=== PATIENT | female | born 1945 | race Caucasian/White ===

== ENCOUNTER 2019-04-16 11:24 | Observation (INO) | payer MEDICARE ==
[~2019-04-16] VITALS: Ht 157.5 cm; Wt 67.2 kg
[~2019-04-16 11:24] MED LIST: BYSTOLIC10 MG PO; CLONIDINE HCL0.1 MG PO; CRESTOR10 MG PO; LOSARTAN POTAS100 MG PO; METFORMIN HCL850 MG PO
[2019-04-16 11:55] LABS: BASOPHILS # (AUTO) 0.1 (0.0-0.1); BASOPHILS % 0.5 % (0.0-1.0); EOSINOPHILS # (AUTO) 0.1 (0.0-0.4); EOSINOPHILS % 1.1 % (0.0-6.0); HEMATOCRIT 30.5 % (34.2-44.1); HEMOGLOBIN 10.1 g/dL (12.0-16.0); LYMPHOCYTES # (AUTO) 1.3 (1.0-3.2); LYMPHOCYTES % 12.6 % (18.0-39.1); MEAN CORPUSCULAR HEMOGLOBIN 28.5 pg (28-32); MEAN CORPUSCULAR HGB CONC 33.1 g/dL (31-35); MEAN CORPUSCULAR VOLUME 85.9 fL (81-99); MONOCYTES # (AUTO) 0.8 (0.2-0.8); MONOCYTES % 7.4 % (4.4-11.3); NEUTROPHILS # (AUTO) 8.1 (2.1-6.9); NEUTROPHILS % 77.8 % (38.7-80.0); PLATELET COUNT 254 x10e3/uL (140-360); RED BLOOD COUNT 3.55 x10e6/uL (3.6-5.1); RED CELL DISTRIBUTION WIDTH 14.1 % (11.7-14.4)
[2019-04-16 12:05] LABS: INR 0.85; PROTHROMBIN TIME 12.1 seconds (11.9-14.5)
[2019-04-16 12:06] LABS: PARTIAL THROMBOPLASTIN TIME 33.1 seconds (23.8-35.5)
[2019-04-16 12:15] LABS: ALBUMIN 3.7 g/dL (3.5-5.0); ALBUMIN/GLOBULIN RATIO 1.1 (0.8-2.0); CALCIUM 8.9 mg/dL (8.4-10.2); CREATININE, SERUM 0.97 mg/dL (0.57-1.11)
[2019-04-16 12:22] LABS: CREATINE KINASE MB 0.8 ng/mL (0-5.0)
--- NOTE | 2019-04-16 12:30 | NUR ---
CAROTID AND ECHO COMPLETE
--- NOTE | 2019-04-16 12:41 | Diagnostic Imaging Report ---
EXAMINATION: CHEST SINGLE (PORTABLE) COMPARISON: None INDICATION: Dizziness, nausea, vomiting ^ERMD ORDER ^[id number] ^[id number] ^Y DISCUSSION: Frontal view of the chest obtained at 1200 hours. HEART AND MEDIASTINUM: The cardiomediastinal silhouette is unremarkable. LINES: None. LUNGS: The lungs are mildly hyperinflated suggestive of small airways disease. No pneumonia or pulmonary edema. PLEURA: No pleural effusion or pneumothorax. BONES AND SOFT TISSUES: No focal osseous lesion. The soft tissues are normal. IMPRESSION: Mild pulmonary hyperinflation. No acute cardiopulmonary process. Signed by: Dr. Humera Cui MD on 04/16/2019 12:37 PM
--- NOTE | 2019-04-16 12:46 | Diagnostic Imaging Report ---
CT BRAIN WO HISTORY: 73-year-old female with syncopal episode COMPARISON: None. TECHNIQUE: Noncontrast axial scans were obtained from skull base to the vertex. Coronal and sagittal reconstructions obtained from the axial data. One or more of the following dose reduction techniques were used: Automated exposure control, adjustment of the mA and/or kV according to patient size, and/or utilization of iterative reconstruction technique. DISCUSSION: Scalp/Skull: Unremarkable. Brain sulci: Mild generalized volume loss. Ventricles: Mild compensatory dilatation. No hydrocephalus. Extra-axial spaces: No masses or fluid collections. Parenchyma: Multiple hypodense foci in the supratentorial white matter are chronic microvascular ischemic changes. Lacunar infarcts within bilateral subinsular regions are age indeterminate. Cystic encephalomalacia within the right cerebellar hemisphere consistent with remote infarct. Otherwise, no mass, hemorrhage, or acute large vascular territory acute infarct. Dural sinuses: No abnormal densities. Intracranial arteries: Atherosclerosis within intradural segments of bilateral vertebral arteries and within the bilateral carotid siphons. Sellar/Suprasellar region: Intact. No masses Skull base: Intact. Incidental findings: None. IMPRESSION: 1. Age indeterminate bilateral insular lacunar infarcts. 2. Otherwise, no acute intracranial abnormalities. Chronic findings: 1. Mild chronic microvascular ischemic changes. 2. Mild generalized volume loss. 3. 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 This preliminary report was issued by Dr. Jhonatan Jefferson M.D. neuroradiology fellow at 1245 hours on 04/16/2019. Signed by: Dr. Wong Covarrubias M.D. on 04/16/2019 1:30 PM
--- NOTE | 2019-04-16 14:15 | NUR ---
PT TO THE FLOOR AT THIS TIME WITH SON AT BEDSIDE. VITALS WNL. PT DENIES NEEDS AT THIS TIME.
[2019-04-16 16:06] VITALS: BP 165/69
[2019-04-16 17:17] VITALS: BP 165/69
[2019-04-16] MEDS ORDERED: LABETALOL HCL100 MG PO (17:31)
[2019-04-16] MEDS ORDERED: SIMVASTATIN20 MG PO (17:31)
[2019-04-16] MEDS ORDERED: NIFEDIPINE ER30 M1 (17:31)
[2019-04-16] MEDS ORDERED: LEVOTHYROXINE75 MCG PO (17:31)
[2019-04-16] MEDS ORDERED: ACETAMINOPHEN/CODEINE 300MG - 30MG TAB PO PRN (19:00)
[2019-04-16] MEDS ORDERED: DEXTROSE 50% SYRINGE 50 ML IV PRN (19:00)
[2019-04-16] MEDS ORDERED: ONDANSETRON HCL INJ 2MG/ML 2ML 2 MG/ML VIAL IV PRN (19:00)
[2019-04-16] MEDS ORDERED: ACETAMINOPHEN 325 MG TAB PO PRN (19:00)
[2019-04-16] MEDS ORDERED: HYDRALAZINE HCL 20 MG/ML VIAL IV PRN (19:00)
[2019-04-16 20:00] VITALS: BP 170/75
[2019-04-16] MEDS: INSULIN LISPRO 100 UNIT/1 ML 3ML VIAL SQ SCH (20:24)
[2019-04-16] MEDS ORDERED: SIMVASTATIN 20 MG TAB PO SCH (21:00)
--- NOTE | 2019-04-16 22:08 | Diagnostic Imaging Report ---
History: Passed out Comparison studies: CT head 04/16/2019 Technique: Sagittal T2; axial DWI, FLAIR, MPGR, T1, Coronal FLAIR. Intravenous contrast: None Findings: Scalp: Normal in signal . No masses . Bone marrow: Normal in signal intensity. Extra-axial: No masses, no fluid collections. Brain sulci: Mildly prominent. Ventricles: Mildly prominent . No hydrocephalus . Parenchyma: Scattered small T-2/flair hyperintensities of the periventricular and deep white matter, secondary to mild chronic microvascular ischemic changes. Small chronic bilateral subinsular lacunar infarcts. Chronic left inferior cerebellar infarct. No masses, hemorrhage or acute cortical vascular insults. Suprasellar region: No abnormalities. Craniocervical junction: No abnormalities. Patent foramen magnum. No Chiari one malformation. Vessels: Normal flow-voids in the arteries and sinuses. Mucous retention cyst at the right maxillary sinus. Bilateral cataract surgery changes. IMPRESSION: 1. No acute abnormalities or significant change from previous examination. 2. Chronic bilateral subinsular subinsular lacunar infarcts. 3. Mild microvascular ischemic changes of the white matter. 4. Mild generalized volume loss. 5. Remote infarct in right inferior cerebellum. Signed by: DR Edu Paredes M.D. on 04/16/2019 10:05 PM
[2019-04-16 23:32] VITALS: BP 121/58
[2019-04-17 02:10] LABS: BASOPHILS % 0.5 % (0.0-1.0); EOSINOPHILS # (AUTO) 0.1 (0.0-0.4); EOSINOPHILS % 1.5 % (0.0-6.0); HEMATOCRIT 28.1 % (34.2-44.1); HEMOGLOBIN 9.2 g/dL (12.0-16.0); LYMPHOCYTES # (AUTO) 1.6 (1.0-3.2); LYMPHOCYTES % 20.5 % (18.0-39.1); MEAN CORPUSCULAR HEMOGLOBIN 27.9 pg (28-32); MEAN CORPUSCULAR HGB CONC 32.7 g/dL (31-35); MEAN CORPUSCULAR VOLUME 85.2 fL (81-99); MONOCYTES # (AUTO) 0.8 (0.2-0.8); MONOCYTES % 10.2 % (4.4-11.3); NEUTROPHILS # (AUTO) 5.3 (2.1-6.9); NEUTROPHILS % 66.8 % (38.7-80.0); PLATELET COUNT 258 x10e3/uL (140-360); RED CELL DISTRIBUTION WIDTH 14.3 % (11.7-14.4)
[2019-04-17 02:55] LABS: THYROID STIMULATING HORMONE 1.624 uIU/mL (0.350-4.940)
[2019-04-17 03:12] LABS: ANION GAP 14.6 mmol/L (8-16); CARBON DIOXIDE 23 mmol/L (22-29); CHLORIDE 105 mmol/L (98-107); CHOLESTEROL 180 MD/DL (0-199); GLUCOSE 109 mg/dL (74-118); POTASSIUM 4.6 mmol/L (3.5-5.1); SODIUM 138 mmol/L (136-145); TRIGLYCERIDES 180 MG/DL (0-149)
[2019-04-17 03:30] LABS: BLOOD UREA NITROGEN 16 mg/dL (7-26); BUN/CREATININE RATIO 18 (6-25); CALCIUM 8.9 mg/dL (8.4-10.2); CHOL/HDL RATIO 3.5 (3.0-3.6); CREATININE, SERUM 0.88 mg/dL (0.57-1.11); EST GLOMERULAR FILTRATION RATE > 60 ML/MIN (60-); HDL CHOLESTEROL 51 MG/DL (40-60); LDL CHOLESTEROL 93 MG/DL (60-130)
[2019-04-17 04:21] VITALS: BP 118/58
[2019-04-17] MEDS ORDERED: MECLIZINE HCL 12.5 MG TAB PO PRN (04:45)
[2019-04-17] MEDS ORDERED: Meclizine Hcl PO (04:48)
[2019-04-17] MEDS ORDERED: ASPIRIN CHEW81 MG PO (04:48)
[2019-04-17] MEDS ORDERED: LEVOTHYROXINE SODIUM 75 MCG TAB PO SCH (06:00)
--- NOTE | 2019-04-17 07:00 | NUR ---
BEDSIDE SHIFT REPORT RECEIVED FROM NIGHT RN. PT DENIES NEEDS AT THIS TIME.
[2019-04-17] MEDS: INSULIN LISPRO 100 UNIT/1 ML 3ML VIAL SQ SCH (07:30)
[2019-04-17] MEDS ORDERED: FAMOTIDINE 20 MG TAB PO SCH (07:30)
[2019-04-17 07:51] VITALS: BP 153/66
[2019-04-17 08:02] VITALS: BP 153/66
[2019-04-17] MEDS ORDERED: ASPIRIN 81 MG CHEW TAB PO SCH (09:00)
[2019-04-17] MEDS ORDERED: NIFEDIPINE CR 30 MG TAB PO SCH (09:00)
--- NOTE | 2019-04-18 01:02 | Discharge Summary ---
ADMISSION DIAGNOSES: Syncope, hypertension, hyperlipidemia, type 2 diabetes, hypothyroidism, acute kidney injury. DISCHARGE DIAGNOSES: Syncope, hypertension, hyperlipidemia, type 2 diabetes, hypothyroidism, acute kidney injury, rule out cerebrovascular accident. HISTORY: Type 2 diabetes, hypertension, anemia, hyperlipidemia, hypothyroidism. SURGICAL HISTORY: Bilateral cataract surgery and tonsillectomy. FAMILY HISTORY: The patient's son and brother have diabetes. SOCIAL HISTORY: Noncontributory. HOSPITAL COURSE: A 73-year-old female admits with complaints of a single syncope episode while sitting at the dinner table. She admits that she took all of her medications before dinner and began to feel a little bit dizzy. She denies focal weakness and dysphagia. No residual symptoms were noticed. On admission. Bilateral carotid Doppler was done, which showed carotid disease without significant stenosis on the left and no significant stenosis on the right. EF of 60% per echo report. Chest x-ray showed mild pulmonary hyperinflation. No acute cardiopulmonary process. CT of the brain showed no acute abnormality. MRI of the brain showed no acute abnormalities. The patient will discharge home with new prescriptions for aspirin and meclizine p.r.n. She will continue home medicines of simvastatin, nifedipine, metformin, levothyroxine, and labetalol. She will follow up with primary care in 1 to 2 weeks. The patient understands discharge instructions and agrees to plan. Vital signs stable, the patient afebrile. Dictated by Kym Galvez NP MD KO Pulido/HARDIK /[id number]
== END 2019-04-17 09:33 | disposition home or self-care (01) ==
LOC: ER 11:27 → ERHOLD 12:30 → MED/SURG 14:10
PROVIDERS: ADMIT Internal Medicine; ATTEND Internal Medicine
DX: R55 Syncope and collapse (principal); E11.9 Type 2 diabetes mellitus without complications; E03.9 Hypothyroidism, unspecified; N17.9 Acute kidney failure, unspecified; I77.89 Other specified disorders of arteries and arterioles
CPT/HCPCS: 36415 ×2; 70450; 70551; 71045; 80048; 80053; 80061; 82550; 82553; 82948 ×2; 83036; 84443; 84484; 85025 ×2; 85610; 85730; 93005; 93306; 93880; 99284; G0378 ×2

== ENCOUNTER 2021-05-05 10:45 | Inpatient (IN) | payer MEDICARE ==
[~2021-05-05] VITALS: Ht 157.5 cm; Wt 67.1 kg
[~2021-05-05 10:45] MED LIST changes: +ASPIRIN CHEW81 MG PO; +LABETALOL HCL100 MG PO; +LEVOTHYROXINE75 MCG PO; +Meclizine Hcl PO; +NIFEDIPINE ER30 M1 PO; +SIMVASTATIN20 MG PO
[2021-05-05] MEDS ORDERED: SODIUM CHLORIDE 0.9% 1000ML 1,000 ML IV STA (10:58)
[2021-05-05] MEDS ORDERED: ONDANSETRON HCL INJ 2MG/ML 2ML 2 MG/ML VIAL IV STA (11:00)
[2021-05-05] MEDS ORDERED: ONDANSETRON HCL INJ 2MG/ML 2ML 2 MG/ML VIAL ONE (11:12)
[2021-05-05 11:37] LABS: BASOPHILS # (AUTO) 0.1 (0.0-0.1); BASOPHILS % 0.8 % (0.0-1.0); EOSINOPHILS # (AUTO) 0.1 (0.0-0.4); EOSINOPHILS % 1.5 % (0.0-6.0); HEMATOCRIT 28.5 % (34.2-44.1); HEMOGLOBIN 8.6 g/dL (12.0-16.0); LYMPHOCYTES # (AUTO) 1.6 (1.0-3.2); LYMPHOCYTES % 17.8 % (18.0-39.1); MEAN CORPUSCULAR HEMOGLOBIN 25.5 pg (28-32); MEAN CORPUSCULAR HGB CONC 30.2 g/dL (31-35); MEAN CORPUSCULAR VOLUME 84.6 fL (81-99); MONOCYTES # (AUTO) 0.7 (0.2-0.8); MONOCYTES % 7.8 % (4.4-11.3); NEUTROPHILS # (AUTO) 6.5 (2.1-6.9); NEUTROPHILS % 71.7 % (38.7-80.0); PLATELET COUNT 331 x10e3/uL (140-360); RED BLOOD COUNT 3.37 x10e6/uL (3.6-5.1); RED CELL DISTRIBUTION WIDTH 15.4 % (11.7-14.4)
[2021-05-05 11:46] LABS: INR 0.88; PROTHROMBIN TIME 12.6 seconds (11.9-14.5)
[2021-05-05 11:47] LABS: PARTIAL THROMBOPLASTIN TIME 34.7 seconds (23.8-35.5)
[2021-05-05 11:56] LABS: ALANINE AMINOTRANSFERASE 9 IU/L (0-55); ALBUMIN 3.8 g/dL (3.5-5.0); ALBUMIN/GLOBULIN RATIO 1.1 (0.8-2.0); ALKALINE PHOSPHATASE 121 IU/L (40-150); ANION GAP 18.8 mmol/L (8-16); BLOOD UREA NITROGEN 16 mg/dL (7-26); BUN/CREATININE RATIO 15 (6-25); CALCIUM 8.4 mg/dL (8.4-10.2); CARBON DIOXIDE 18 mmol/L (22-29); CHLORIDE 104 mmol/L (98-107); CREATINE KINASE 67 IU/L (29-168); EST GLOMERULAR FILTRATION RATE 48 ML/MIN (60-); GLUCOSE 213 mg/dL (74-118); POTASSIUM 4.8 mmol/L (3.5-5.1); SODIUM 136 mmol/L (136-145)
[2021-05-05 13:10] LABS: CLARITY,URINE CLEAR (CLEAR); COLOR,URINE YELLOW (YELLOW); LEUKOCYTE ESTERASE ,URINE NEGATIVE (NEGATIVE)
[2021-05-05 13:11] LABS: KETONES,URINE NEGATIVE (NEGATIVE); NITRITE,URINE NEGATIVE (NEGATIVE); PROTEIN,URINE DIPSTICK TRACE (NEGATIVE); URINE UROBILINOGEN 0.2 mg/dL (0.2 - 1)
[2021-05-05 13:24] LABS: BACTERIA,URINE RARE /HPF; EPITHELIAL CELLS,URINE FEW /LPF; RBC,URINE 0-5 /HPF (0-5); WBC,URINE (MAN) 0-5 /HPF (0-5)
[2021-05-05] MEDS ORDERED: ALBUTEROL/IPRATROPIUM 3 ML NEB NEB ONE (13:30)
[2021-05-05] MEDS ORDERED: ALBUTEROL/IPRATROPIUM 3 ML NEB ONE (13:31)
[2021-05-05] MEDS ORDERED: ONDANSETRON HCL INJ 2MG/ML 2ML 2 MG/ML VIAL IV PRN (14:15)
[2021-05-05] MEDS ORDERED: SODIUM CHLORIDE 0.9% 1000ML 1,000 ML IV SCH (14:15)
[2021-05-05] MEDS: ALBUTEROL/IPRATROPIUM 3 ML NEB NEB SCH ×3 (14:34→23:40)
[2021-05-05 15:44] VITALS: BP 157/69
[2021-05-05] MEDS: FAMOTIDINE 20 MG/2 ML VIAL IV SCH (16:17)
[2021-05-05 16:29] VITALS: BP 157/69
[2021-05-05] MEDS ORDERED: LABETALOL HCL 100 MG TAB PO SCH (17:00)
[2021-05-05] MEDS: METFORMIN HCL 850 MG TAB PO SCH (17:21)
[2021-05-05] MEDS ORDERED: LOSARTAN POTASS25 MG PO (18:11)
[2021-05-05] MEDS: NIFEDIPINE CR 30 MG TAB PO SCH (18:21)
[2021-05-05 19:23] LABS: CREATINE KINASE MB 1.8 ng/mL (0-5.0)
[2021-05-05] MEDS: LABETALOL HCL 100 MG TAB PO SCH (21:00)
[2021-05-05] MEDS: LOSARTAN POTASSIUM 25 MG TAB PO SCH (21:00)
[2021-05-05] MEDS: SIMVASTATIN 20 MG TAB PO SCH (21:00)
[2021-05-05 21:10] VITALS: BP 154/58
[2021-05-06] VITALS (7 sets, daily range): BP systolic 119–161; BP diastolic 52–61
[2021-05-06] MEDS: FAMOTIDINE 20 MG/2 ML VIAL IV SCH ×2 (02:15→14:53)
[2021-05-06] MEDS: ALBUTEROL/IPRATROPIUM 3 ML NEB NEB SCH ×6 (03:50→23:05)
[2021-05-06 05:20] LABS: BASOPHILS # (AUTO) 0.1 (0.0-0.1); BASOPHILS % 0.5 % (0.0-1.0); EOSINOPHILS # (AUTO) 0.1 (0.0-0.4); HEMATOCRIT 23.8 % (34.2-44.1); HEMOGLOBIN 7.6 g/dL (12.0-16.0); LYMPHOCYTES # (AUTO) 1.4 (1.0-3.2); LYMPHOCYTES % 13.5 % (18.0-39.1); MEAN CORPUSCULAR HEMOGLOBIN 25.9 pg (28-32); MEAN CORPUSCULAR HGB CONC 31.9 g/dL (31-35); MEAN CORPUSCULAR VOLUME 81.2 fL (81-99); MONOCYTES # (AUTO) 0.9 (0.2-0.8); MONOCYTES % 8.3 % (4.4-11.3); NEUTROPHILS % 76.3 % (38.7-80.0); PLATELET COUNT 310 x10e3/uL (140-360); RED BLOOD COUNT 2.93 x10e6/uL (3.6-5.1); RED CELL DISTRIBUTION WIDTH 15.2 % (11.7-14.4)
[2021-05-06 05:44] LABS: ALBUMIN 3.1 g/dL (3.5-5.0); ANION GAP 14.2 mmol/L (8-16); CALCIUM 7.9 mg/dL (8.4-10.2); CHOL/HDL RATIO 2.8 (3.0-3.6); CREATININE, SERUM 0.85 mg/dL (0.57-1.11); POTASSIUM 4.2 mmol/L (3.5-5.1)
[2021-05-06] MEDS: LEVOTHYROXINE SODIUM 75 MCG TAB PO SCH (06:00)
[2021-05-06 06:12] LABS: CREATINE KINASE MB 2.2 ng/mL (0-5.0)
[2021-05-06 06:25] LABS: MAGNESIUM 1.3 MG/DL (1.3-2.1)
[2021-05-06] MEDS: METFORMIN HCL 850 MG TAB PO SCH ×2 (09:17→15:59)
[2021-05-06] MEDS: NIFEDIPINE CR 30 MG TAB PO SCH ×2 (09:17→16:00)
[2021-05-06] MEDS: LABETALOL HCL 100 MG TAB PO SCH ×2 (09:17→20:32)
[2021-05-06] MEDS: SODIUM CHLORIDE 0.9% 1000ML 1,000 ML IV SCH ×2 (11:59→17:38)
[2021-05-06 12:11] LABS: PHOSPHORUS 3.6 MG/DL (2.3-4.7)
[2021-05-06] MEDS ORDERED: ONDANSETRON HCL 4 MG ORAL DISINTEGRATING TAB PO PRN (18:45)
[2021-05-06] MEDS: LOSARTAN POTASSIUM 25 MG TAB PO SCH (20:31)
[2021-05-06] MEDS: SIMVASTATIN 20 MG TAB PO SCH (20:32)
[2021-05-07] VITALS: BP 142/58
[2021-05-07] MEDS: FAMOTIDINE 20 MG/2 ML VIAL IV SCH ×2 (02:15→14:42)
[2021-05-07] MEDS: ALBUTEROL/IPRATROPIUM 3 ML NEB NEB SCH ×3 (03:05→11:29)
[2021-05-07 03:15] LABS: % IRON SATURATION 10 % (15-50); IRON 44 ug/dL (50-170); TOTAL IRON BINDING CAPACITY 451 ug/dL (261-478); TRANSFERRIN 322 mg/dL (180-382)
[2021-05-07 04:00] VITALS: BP 124/51
[2021-05-07 06:01] LABS: BASOPHILS # (AUTO) 0.1 (0.0-0.1); BASOPHILS % 0.7 % (0.0-1.0); EOSINOPHILS # (AUTO) 0.3 (0.0-0.4); HEMATOCRIT 23.8 % (34.2-44.1); HEMOGLOBIN 7.2 g/dL (12.0-16.0); LYMPHOCYTES # (AUTO) 1.2 (1.0-3.2); MEAN CORPUSCULAR HEMOGLOBIN 25.9 pg (28-32); MEAN CORPUSCULAR HGB CONC 30.3 g/dL (31-35); MEAN CORPUSCULAR VOLUME 85.6 fL (81-99); MONOCYTES # (AUTO) 0.7 (0.2-0.8); MONOCYTES % 10.2 % (4.4-11.3); NEUTROPHILS # (AUTO) 4.6 (2.1-6.9); NEUTROPHILS % 67.5 % (38.7-80.0); PLATELET COUNT 291 x10e3/uL (140-360); RED BLOOD COUNT 2.78 x10e6/uL (3.6-5.1); RED CELL DISTRIBUTION WIDTH 15.7 % (11.7-14.4)
[2021-05-07] MEDS: LEVOTHYROXINE SODIUM 75 MCG TAB PO SCH (06:16)
[2021-05-07 06:20] LABS: ANION GAP 13.2 mmol/L (8-16); CALCIUM 7.6 mg/dL (8.4-10.2); CREATININE, SERUM 0.85 mg/dL (0.57-1.11); POTASSIUM 4.2 mmol/L (3.5-5.1)
[2021-05-07 07:52] VITALS: BP 179/70
[2021-05-07 09:17] VITALS: BP 179/70
[2021-05-07] MEDS: SODIUM CHLORIDE 0.9% 1000ML 1,000 ML IV SCH (09:21)
[2021-05-07] MEDS: LABETALOL HCL 100 MG TAB PO SCH (09:22)
[2021-05-07] MEDS: NIFEDIPINE CR 30 MG TAB PO SCH (09:22)
[2021-05-07] MEDS: METFORMIN HCL 850 MG TAB PO SCH (09:23)
[2021-05-07] MEDS ORDERED: GADOBENATE DIMEGLUMINE 1 ML IV ONE (10:58)
[2021-05-07 11:42] VITALS: BP 168/61
[2021-05-07] MEDS ORDERED: SODIUM FERRIC GLUCONATE COMPLX 125 MG in SODIUM CHLORIDE 0.9% 100 ML 100 ML IV SCH (14:15)
[2021-05-07] MEDS ORDERED: FEOSOL325 MG PO (14:36)
[2021-05-07] MEDS ORDERED: BISACODYL5 MG PO (14:37)
[2021-05-07] MEDS ORDERED: FERROUS SULFATE 325 MG TAB PO ONE (15:00)
== END 2021-05-07 15:10 | disposition home or self-care (01) | DRG 312 ==
LOC: ER 10:59 → ERHOLD 14:05 → MED/SURG 15:17 → OBSVTOIN 05-07 10:46
PROVIDERS: ADMIT Internal Medicine; ATTEND Internal Medicine
DX: R55 Syncope and collapse (principal); Z79.84 Long term (current) use of oral hypoglycemic drugs; I10 Essential (primary) hypertension; E11.65 Type 2 diabetes mellitus with hyperglycemia; E11.69 Type 2 diabetes mellitus with other specified complication; E03.9 Hypothyroidism, unspecified; Z20.822 Contact with and (suspected) exposure to COVID-19; E78.00 Pure hypercholesterolemia, unspecified; D64.9 Anemia, unspecified; Z86.73 Personal history of transient ischemic attack (TIA), and cerebral infarction without residual deficits; D50.9 Iron deficiency anemia, unspecified; I65.21 Occlusion and stenosis of right carotid artery; I65.01 Occlusion and stenosis of right vertebral artery
CPT/HCPCS: 36415; 70450; 70544; 70549; 70553; 71045; 80053; 80061; 81001; 82550; 82553; 82607; 82746; 82948; 83036; 83540; 83735; 83880; 84100; 84466; 84484; 85025; 85045; 85610; 85730; 93005; 93306; 93880; 94799; 99251; 99285; G0378; J2405; J2916; J7030; U0002